=== PATIENT | female | born 1960 | race Caucasian/White ===

== ENCOUNTER 2019-12-28 08:37 | Outpatient (CLI) | payer BC, SELFPAY | END 2019-12-28 08:38 | disposition home or self-care (01) | LOC: CHSLAB 08:42 | PROVIDERS: PCP Internal Medicine; Visit Provider Specialist | DX: L01.00 Impetigo, unspecified (principal) | CPT/HCPCS: 87070; 87075; 87205 ==

== ENCOUNTER 2021-01-23 14:43 | Outpatient (CLI) | payer BC, SELFPAY ==
--- NOTE | ~2021-01-23 | CT_ITS ---
EXAMINATION: CT lung screening DATE: 01/23/2021 15:08 INDICATION: Personal history of tobacco dependence, current smoker with 40 to pack year history TECHNIQUE: Computed tomography (CT) of the chest was performed without intravenous contrast. The dose -length product (DLP) was 98.99 mGy-cm. Automated exposure control and iterative reconstruction techn Peerzue were employed. COMPARISON: 12/09/2018 FINDINGS: There is mild emphysema. There is a 5 mm groundglass nodule of the right upper lobe on imag e 26. Calcified pulmonary nodules and calcified mediastinal lymph nodes are consistent with old granu lomatous disease. The lungs are free of acute opacities. There is no pleural effusion or pneumothorax . No pathologically enlarged thoracic lymph nodes are identified. The heart size is normal. Calcified atherosclerosis is noted. Punctate calcifications in an otherwise normal spleen likely represent hea led granulomatous disease. There is a stable 2.5 cm low-density mass of the left adrenal gland, consi stent with an adenoma. IMPRESSION: 1. Lung-RADS category 2: Benign appearance or behavior. Continue annual screening with noncontrast lo w-dose chest CT in 12 months. Reviewed, dictated and finalized at location B. IMPRESSION: 1. Lung-RADS category 2: Benign appearance or behavior. Continue annual screeni ng with noncontrast low-dose chest CT in 12 months.
== END 2021-01-23 14:44 | disposition home or self-care (01) ==
LOC: CHSIMG 14:44
PROVIDERS: PCP Internal Medicine; Visit Provider Internal Medicine
DX: Z12.2 Encounter for screening for malignant neoplasm of respiratory organs (principal); Z87.891 Personal history of nicotine dependence
CPT/HCPCS: 71271

== ENCOUNTER 2021-01-29 12:14 | Outpatient (CLI) | payer BC, SELFPAY ==
--- NOTE | ~2021-01-29 | US_ITS ---
US soft tissue head and neck 01/29/2021 12:34 Indication: Lump under a year Procedure: High-resolution ultrasound of the left neck in the area of palpable concern Comparison: No prior studies for comparison. Findings: In the area of palpable concern there is an oval hypoechoic mass with internal vascularity, circumscribed margins, parallel orientation and no posterior features measuring 8 mm maximum dimensi on. There is a thin linear echogenic septum. There is a similar mass in the same area measuring 7 x 6 x 4 mm with similar characteristics. Impression: 1: 2 oval hypoechoic masses of the left neck in the area of palpable concern, likely reactive lymph n odes. Consider correlation with contrast-enhanced CT neck. Reviewed, dictated and finalized at location A. Impression: 1: 2 oval hypoechoic masses of the left neck in the area of palpable concern, l ikely reactive lymph nodes. Consider correlation with contrast-enhanced CT neck .
== END 2021-01-29 12:15 | disposition home or self-care (01) ==
LOC: CHSIMG 12:15
PROVIDERS: PCP Internal Medicine; Visit Provider Internal Medicine
DX: R59.1 Generalized enlarged lymph nodes (principal)
CPT/HCPCS: 76536

== ENCOUNTER 2021-02-01 07:26 | Outpatient (CLI) | payer BC, SELFPAY ==
--- NOTE | ~2021-02-01 | CT_ITS ---
EXAMINATION: CT soft tissue neck w con DATE: 02/01/2021 09:13 INDICATION: Left neck mass. TECHNIQUE: Computed tomography (CT) of the neck was performed with 75 mL Omnipaque-350 intravenous co ntrast. Automated exposure control and iterative reconstruction technique were employed. The dose-geovanny gth product was 549.76 mGy-cm. COMPARISON: None FINDINGS: There is mild emphysema. There is a skin marker in the left posterolateral neck. There are normal lymph nodes in this area. There is plaque in proximal left internal carotid artery with 0% geornimo nosis relative to normal distal artery lumen diameter. The paranasal sinuses are clear. The mastoid a ir cells are normal. There is moderate cervical spondylosis. IMPRESSION: 1. No abnormal neck mass or lymphadenopathy. Reviewed, dictated and finalized at location B.
== END 2021-02-01 07:27 | disposition home or self-care (01) ==
LOC: CHSIMG 07:28
PROVIDERS: PCP Internal Medicine; Visit Provider Internal Medicine
DX: R22.1 Localized swelling, mass and lump, neck (principal)
CPT/HCPCS: 70491; Q9967

== ENCOUNTER 2021-03-30 12:41 | Outpatient (CLI) | payer BC, SELFPAY ==
--- NOTE | ~2021-03-30 | XR_ITS ---
XR hip LT min 2V DATE: 03/30/2021 12:59 INDICATION: Back pain and left hip pain for one week. No injury. TECHNIQUE: AP and lateral views COMPARISON: None FINDINGS: There is degenerative spurring of the left femoral head with moderate left hip osteoarthrit is. Mild osteitis pubis. The sacroiliac joints are intact. No left hip fracture or dislocation, avascular necrosis or bone destruction is evident. Severe degenerative disc disease and included L5-S1. Bilateral pelvic surgical clips. IMPRESSION: Moderate left hip osteoarthritis Reviewed, dictated and finalized at location A.
--- NOTE | ~2021-03-30 | XR_ITS ---
XR lumbar spine 2-3V DATE: 03/30/2021 12:59 INDICATION: Back pain and left hip pain for one week. No known injury. TECHNIQUE: AP, lateral, coned lateral lumbosacral views COMPARISON: None FINDINGS: There is mild degenerative spurring of the lower thoracic spine. There is moderate degenerative disc disease at L1-2,, L3-4 and L4-5; moderately severe degenerative d isc disease at L2-3 and severe degenerative disease at L5-S1. No fracture, spondylolisthesis or bone destruction is evident. Included lower thoracic and lumbar ped icles are intact. The sacroiliac joints are intact. Surgical clips overlie pelvic area bilaterally. IMPRESSION: Multilevel degenerative disc disease, most pronounced at L2-3 and L5-S1 Reviewed, dictated and finalized at location A. IMPRESSION: Multilevel degenerative disc disease, most pronounced at L2-3 and L 5-S1
== END 2021-03-30 12:42 | disposition home or self-care (01) ==
LOC: CHSIMG 12:44
PROVIDERS: PCP Internal Medicine; Visit Provider Internal Medicine
DX: M54.9 Dorsalgia, unspecified (principal); M25.552 Pain in left hip
CPT/HCPCS: 72100; 73502

== ENCOUNTER 2021-04-06 12:46 | Outpatient (CLI) | payer BC, SELFPAY ==
--- NOTE | ~2021-04-06 | MM_ITS ---
EXAMINATION: MM screening dheeraj BI w oscar HISTORY: Screening mammogram TECHNIQUE: Craniocaudal and mediolateral oblique 3-D tomosynthesis images were obtained and synthetic 2-D images were generated. CAD analysis was submitted and interpreted. COMPARISON: 12/15/2018, 11/08/2015, 09/09/2014 bilateral digital screening mammogram examinations BREAST PARENCHYMAL COMPOSITION: The breasts are almost entirely fatty. FINDINGS: There is no evidence of suspicious mass, calcification, or architectural distortion to sugg est malignancy in either breast. There has been no suspicious interval change. IMPRESSION: 1. No mammographic evidence of malignancy. 2. Recommend routine screening mammography in one year. BI-RADS Category 1: Negative Reviewed, dictated and finalized at location A.
--- NOTE | ~2021-04-06 | DEXA_ITS ---
Bone Density Report Name: Kinza Larsen Age: 61 Sex: Female Ethnicity: White Date of : 1960 Indication: osteopenia; height loss; asthma or emphysema; Referring Provider: Mendez Vargas Study: Bone densitometry was performed. Exam Date: April 06, 2021 Accession number: [id number] Bone Density: Region BMD T-score Z-score Classification AP Spine(L2, L3, L4) 1.049 -0.3 1.3 Normal Femoral Neck (Left) 0.646 -1.8 -0.5 Osteopenia Total Hip (Left) 0.799 -1.2 -0.1 Osteopenia Femoral Neck (Right) 0.611 -2.1 -0.8 Osteopenia Total Hip (Right) 0.818 -1.0 0.0 Normal Femoral Neck Mean 0.629 -2.0 -0.6 Osteopenia Total Hip Mean 0.809 -1.1 0.0 Osteopenia World Health Organization criteria for BMD impression classify patients as: Normal (T-score at or above -1.0), Osteopenia (T-score between -1.0 and -2.5), or Osteoporosis (T-score at or below -2.5). 10-year Fracture Risk(1): Major Osteoporotic Fracture 11% Hip Fracture 2.6% Reported Risk Factors: [place] (), Neck BMD=0.611, BMI=28.3, smoking (1) FRAX(R) Version 3.08. Fracture probability calculated for an untreated patient. Fracture probability may be lower if the patient has received treatment. Previous Exams: Region Exam Age BMD T-score BMD Change BMD Change Date g/cm2 vs Baseline vs Previous AP Spine (L2-L4) 04/06/2021 61 1.049 -0.3 0.015 (1.4%)# -0.072 (-6.4%) 12/15/2018 58 1.120 0.4 0.086 (8.4%)*! 0.086 (8.4%)* 11/08/2015 55 1.034 -0.4 Total Hip(Left) 04/06/2021 61 0.799 -1.2 0.028 (3.6%)# 0.008 (1.0%)# 12/15/2018 58 0.791 -1.2 0.019 (2.5%) 0.019 (2.5%) 11/08/2015 55 0.772 -1.4 Total Hip(Right) 04/06/2021 61 0.818 -1.0 0.015 (1.9%)# 0.015 (1.9%)# 12/15/2018 58 0.802 -1.1 *Denotes significance at 95% confidence level, LSC for AP Spine = 0.022 g/cm2, LSC for Total Hip = 0.027 g/cm2 # Denotes dissimilar scan types or analysis methods Clinical Information Provided by Patient: Smokes Has used the following medications: Vitamin D Has the following medical conditions: Asthma or Emphysema Patient maximum height was 62 No regular weight bearing exercise Does not regularly consume dairy products Drinks caffeinated beverages Onset of menses at age 13 Number of children 2 Impression: The patient has low bone mass, based on the Right Femoral Neck T-score. The patient has risk factors, including: smoking. No sign
== END 2021-04-06 12:47 | disposition home or self-care (01) ==
LOC: CHSIMG 12:49
PROVIDERS: PCP Internal Medicine; Visit Provider Internal Medicine
DX: Z12.31 Encounter for screening mammogram for malignant neoplasm of breast (principal); M81.0 Age-related osteoporosis without current pathological fracture
CPT/HCPCS: 77063; 77067; 77080

== ENCOUNTER 2021-07-06 11:30 | Outpatient (CLI) | payer BC, SELFPAY ==
--- NOTE | ~2021-07-06 | XR_ITS ---
EXAMINATION:XR_CERV2-3V_CR DATE: 07/06/2021 11:52 INDICATION: Neck pain and stiffness with left-sided mass/lump TECHNIQUE: AP, lateral and odontoid views of the cervical spine are provided. COMPARISON: None FINDINGS: 1-2 mm retrolisthesis C2 on C3 and C5 on C6 with moderate disc height loss at both levels. Odontoid i s intact with moderate osteoarthritis at the atlantoaxial articulation. Vertebral body heights are no rmal. Multilevel moderate facet and mild to moderate uncovertebral osteoarthritis throughout the cerv ical spine. Prevertebral soft tissues are normal. IMPRESSION: 1. Moderate cervical spondylosis. Reviewed, dictated and finalized at location A.
== END 2021-07-06 11:31 | disposition home or self-care (01) ==
LOC: CHSLAB 11:32
PROVIDERS: PCP Internal Medicine; Visit Provider Internal Medicine
DX: M54.2 Cervicalgia (principal)
CPT/HCPCS: 72040

== ENCOUNTER 2021-10-27 10:00 | Emergency (ER) | payer BC, SELFPAY ==
--- NOTE | 2021-10-27 11:06 | ED.SKABFB ---
HPI - Skin/Abscess/Foreign Bdy General Chief complaint: Skin/Abscess/Foreign Body Stated complaint: rash on both arms neck and leg covid positive Time Seen by Provider: 10/27/21 11:06 Source: patient Mode of arrival: ambulatory Limitations: no limitations History of Present Illness HPI narrative: 51-year-old woman with a history of psoriasis, hypertension and dyslipidemia comes in today complaining of an itchy rash on her arms and legs there has been present for 3 weeks. She states that the rash itching seems to be getting worse but her psoriasis is not gotten worse. She recently was diagnosed with COVID. She denies any new medications. She stopped using soaps and detergents. Her doctor prescribed topical triamcinolone but that seems to make the rash burn. She denies fever, shortness of breath, vomiting, feeling weak, and chest pain. MD complaint: rash Onset (ago): week(s) (3) Location: LUE, RUE, LLE and RLE Severity: moderate Quality: pruritic Pain Consistency: constant Relieving factors: none Exacerbating factors: medication Context: none Associated symptoms: cough Treatments prior to arrival: corticosteroid Related Data Home Medications Medication Instructions Recorded Confirmed atorvastatin 20 mg tablet 20 mg PO DAILY 06/27/21 06/27/21 fexofenadine 180 mg tablet 180 mg PO DAILY 06/27/21 06/27/21 hydrochlorothiazide 25 mg tablet 25 mg PO DAILY 06/27/21 06/27/21 lisinopril 40 mg tablet 40 mg PO DAILY 06/27/21 06/27/21 omeprazole 40 mg capsule,delayed 40 mg PO DAILY 06/27/21 06/27/21 release Allergies Allergy/AdvReac Type Severity Reaction Status Date / Time No Known Allergies Allergy Unverified 06/27/21 09:28 Review of Systems Review of Systems: All systems reviewed & are unremarkable except as noted in HPI and below Constitutional: Constitutional: Denies chills and Denies fever(s) ENT: Reports nasal congestion and Denies sore throat Cardiovascular: Cardiovascular: Denies chest pain and Denies radiating jaw, neck or arm pain Respiratory: Respiratory: Reports chest congestion, Reports cough, Denies dyspnea and Denies wheezing Gastrointestinal: Gastrointestinal: Denies abdominal pain, Denies diarrhea, Denies nausea and Denies vomiting Musculoskeletal: Musculoskeletal: Denies arthralgias and Denies joint swelling Neurologic: Denies dizziness, Denies syncope, Denies headache(s) and Denies focal weakness Allergic/Immunologic: Allergic/Immunologic: Denies lip swelling, Denies throat swelling and Denies tongue swelling PMF Past Medical History Medical History Allergies GERD (gastroesophageal reflux disease) Family History Family History (Updated 06/27/21 @ 09:32 by Aida Horton MA) Father Alcoholism Mother Hypertension Son Heart disease Grandparent Lung cancer Social History Social History Smoking packs per day: 1 Smoking cigarettes per day: 20.0 Smoking status: Current every day smoker Alcohol intake: current Substance use: never Exam Const: General: healthy appearing, no acute distress and alert Orientation/consciousness: patient oriented x3 Limitations: no limitations HENMT: Head: normal to inspection Ears: external ears normal, TM's normal bilaterally and EAC's normal General nose exam: Normal nares present Face and sinus: normal facial exam Mouth: Yes moist mucous membranes Throat: posterior oropharynx normal Eyes: Conjunctivae: conjunctivae normal Pupils: Equal, round and reactive pupils present EOM: EOMs intact bilaterally Resp: Effort & Inspection: normal respiratory effort and not labored Auscultation: clear to auscultation bilaterally, no rales, no rhonchi and no wheezes Cardio: Rate: regular rate Rhythm: regular rhythm Heart sounds: no murmurs Skin: General skin exam: normal color, no jaundice and no pallor Other: Mild erythema with s
[2021-10-27 11:07] VITALS: BP 175/102; PULSE 91; RESP 20; TEMP 36.3; O2SAT 96
--- NOTE | 2021-10-27 11:28 | PC.NURSE ---
Floor notified pt was being admitted and covid +. Sita states she will have to move some things around on the floor and get back to television writer with bed assignment.
== END 2021-10-27 12:18 | disposition home or self-care (01) ==
PROVIDERS: Emergency Provider Emergency Medicine; PCP Internal Medicine
DX: R21 Rash and other nonspecific skin eruption (principal)
CPT/HCPCS: 99283

== ENCOUNTER 2021-11-01 10:30 | Outpatient (CLI) | payer BC, SELFPAY ==
--- NOTE | 2021-11-01 10:40 | PC.NURSE ---
Pt to room 227 amb. A&Ox3. Infusion plan of care explained. Pt read and signed the consent form. Pt has no questions or complaints. Oriented to room. Call alfonso in reach. Reminded to call with needs.
[2021-11-01] MEDS: ACETAMINOPHEN 325 MG TABLET 650 MG PO (11:04)
[2021-11-01] MEDS: diphenhydrAMINE HCl CAP 25 MG CAPSULE PO (11:05)
[2021-11-01] MEDS: FAMOTIDINE 20 MG TABLET PO (11:05)
--- NOTE | 2021-11-01 12:10 | PC.NURSE ---
PT has no complaints. Discharged to home amb.
== END 2021-11-01 10:31 | disposition home or self-care (01) ==
PROVIDERS: PCP Internal Medicine; Visit Provider Internal Medicine
DX: U07.1 COVID-19 (principal)
CPT/HCPCS: A9270; M0245; Q0247

== ENCOUNTER 2022-05-20 10:07 | Outpatient (CLI) | payer BC, SELFPAY ==
--- NOTE | ~2022-05-20 | CT_ITS ---
EXAMINATION:CT lung screening DATE: 05/20/2022 10:20 INDICATION: Personal history of nicotine dependence. Current smoker with 43 pack year history. TECHNIQUE: Computed tomography (CT) of the chest was performed without intravenous contrast. Automate d exposure control and iterative reconstruction technique were employed. The dose-length product (DLP ) was 82.09 mGy-cm. COMPARISON: Chest CT 01/23/2021 FINDINGS: There is mild emphysema. Calcified left lung nodules and calcified left hilar and mediastin al lymph nodes are consistent with old granulomatous disease. There is a new 4 mm thin-walled cavitar y nodule in left upper lobe. No pleural effusion. The heart size is normal. There are coronary artery calcifications. No pericardial effusion. Calcifications in the spleen are consistent with old granul omatous disease. There is a chronic 3.0 cm mass in left adrenal gland measuring low-attenuation, cons istent with an adenoma. There is moderate thoracic spondylosis. IMPRESSION: 1. Lung-RADS category 3: Probably benign. Further evaluation is recommended with noncontrast low-dose chest CT in 6 months. Reviewed, dictated and finalized at location A. IMPRESSION: 1. Lung-RADS category 3: Probably benign. Further evaluation is recommended wit h noncontrast low-dose chest CT in 6 months.
== END 2022-05-20 10:08 | disposition home or self-care (01) ==
LOC: CHSIMG 10:08
PROVIDERS: PCP Internal Medicine; Visit Provider Internal Medicine
DX: Z12.2 Encounter for screening for malignant neoplasm of respiratory organs (principal); Z87.891 Personal history of nicotine dependence
CPT/HCPCS: 71271

== ENCOUNTER 2022-06-14 08:48 | Outpatient (CLI) | payer BC, SELFPAY ==
--- NOTE | 2022-06-14 | EST_ITS ---
Patient Info Name: Kinza Larsen Age: 62 years : 1960 Gender: Female Ht: 62 in Wt: 150 lbs BSA: 1.74 m2 Exam Date: 06/14/2022 10:11 AM Exam Location: [facility] Stress Patient Status: Outpatient Admit Date: 06/14/2022 Staff Ordering Physician: Mendez Vargas MD Attending Provider: Mendez Vargas MD Exercise Technologist: Leonor Malik CT Exercise Physician: Marcus Dumont DO Exam Type: CA stress barbara w NM Study Info Indications I25.84 - EXERCISE INTOLERANCE CORONARY CALCIFICATION A regadenoson stress test was performed. Summary 1. 1. Negative lexiscan stress test for ischemic ST changes by ECG criteria. 2. 2. Baseline hypertension. 3. 3. Nuclear scan to follow and will be reported separately. Please correlate with it. 4. 4. Patient informed of the above results. Protocol: Lexiscan Stress ECG Details Stage: REST Duration (min): 1 min : 5 sec HR (bpm): 59 SBP (mmHg): 150 DBP (mmHg): 79 Stage: REST Duration (min): 5 min : 7 sec HR (bpm): 61 SBP (mmHg): 150 DBP (mmHg): 79 Stage: STAGE 1 Duration (min): 1 min : 0 sec HR (bpm): 70 SBP (mmHg): 154 DBP (mmHg): 85 Stage: RECOVERY Duration (min): 1 min : 0 sec HR (bpm): 102 SBP (mmHg): 154 DBP (mmHg): 85 Stage: RECOVERY Duration (min): 2 min : 0 sec HR (bpm): 99 SBP (mmHg): 154 DBP (mmHg): 85 Stage: RECOVERY Duration (min): 3 min : 0 sec HR (bpm): 90 SBP (mmHg): 157 DBP (mmHg): 80 Stage: RECOVERY Duration (min): 3 min : 4 sec HR (bpm): 91 SBP (mmHg): 157 DBP (mmHg): 80 Rest HR: 61 bpm Peak HR: 104 bpm Rest Sys BP: 150 mmHg Peak Sys BP: 157 mmHg Max Pred HR: 157 bpm % Max Pred HR: 66 % Target HR: 133 bpm Max RPP: 16,328 bpm*mmHg Termination Reason: Completed protocol Cardiac Symptoms: Shortness of breath Total Time: 1 min : 0 sec Rest Larios BP: 79 mmHg Peak Larios BP: 80 mmHg Total Dose: 0.4 mg Resting ECG Sinus rhythm. Stress ECG No ST changes. Arrhythmias None. Report Signatures
--- NOTE | ~2022-06-14 | NM_ITS ---
EXAMINATION: NM barbara stress w perfusion DATE: 06/14/2022 11:08 INDICATION: Coronary artery calcifications. Exercise intolerance. TECHNIQUE: Rest images were obtained following intravenous administration of 10.1 mCi Tc99m tetrofosm in (Myoview). The patient was infused intravenously with Lexiscan (Regadenoson). Then, 32.5 mCi Tc99m tetrofosmin (Myoview) was administered intravenously, and stress images were obtained. Data was nigel nstructed into short axis and horizontal and vertical long axis SPECT images. Gated SPECT images were also obtained. COMPARISON: None. FINDINGS: There is no definite reversible or fixed perfusion abnormality to suggest ischemia or infar ction. There is normal left ventricular chamber size, wall motion and ejection fraction. Left ventr icular ejection fraction measures >70%. IMPRESSION: 1. Normal myocardial perfusion at rest and during stress. 2. Left ventricular ejection fraction measuring >70%. Reviewed, dictated and finalized at location A.
== END 2022-06-14 08:49 | disposition home or self-care (01) ==
PROVIDERS: PCP Internal Medicine; Visit Provider Internal Medicine
DX: I25.10 Atherosclerotic heart disease of native coronary artery without angina pectoris (principal)
CPT/HCPCS: 78452; 93017; A9502

== ENCOUNTER 2022-08-16 12:39 | Outpatient (CLI) | payer BC, SELFPAY ==
[2022-08-16 13:25] VITALS: PULSE 74; O2SAT 94
[2022-08-16 13:32] VITALS: PULSE 88; O2SAT 93
--- NOTE | 2022-08-16 13:39 | HOMEO2EVAL ---
Evaluation was performed at [facility] Home Oxygen Evaluation RC: Home Oxygen (O2) Evaluation Start: 08/16/22 13:33 Freq: Status: Active Protocol: RPE Activity Type Activity Date Activity User E-sign Co-sign Detail Recorded Client Recorded Date Recorded By Document 08/16/22 13:25 [email or web address] 08/16/22 13:37 SJB Document 08/16/22 13:32 SJB [email or web address] 08/16/22 13:37 SJB 08/16/22 08/16/22 13:25 13:32 Home O2 Evaluation [Oxygen] -Test Phase Resting Exercise -Oxygen Delivery Room Air Room Air [Pulse Oximetry] -Pulse Oximetry (90-100 %) 94 93 [Pulse Rate] -Pulse Rate (60-100 beats/min) 74 88 [Evaluation] -Activity Tolerance Good -Rating of Perceived Dyspnea (PD) +1 Mild, Noticeable to the Participant but Not to an Observer -Rate of Perceived Exertion (PE) 11 Fairly light Query Text:Click the Protocol Button to View the RPE Scale [Exercise] -Ambulation Distance (feet) 1,100 -Ambulation Distance (meters) 335.26 [Comments] -Home Oxygen Evaluation Comments Will begin walk Pt walked on room air. approx 1100 ft on room air. Sp02 stayed between 92-94%, HR up to 88. Sarah very well, talking throughout. Educated on PLB . [Charges] -Treatment Charges O2 Evaluation - Outpatient
--- NOTE | 2022-08-23 17:17 | PFT_ITS ---
This report was recreated on September 02, 2022. Original report was signed by Dr. dEie Cook on August 23, 2022 at 1721. PFT Procedure Performed PFT Procedure Performed Spirometry with Pre/Post Bronchodilator Plethysmography (Lung Vol) Diffusing Cap (DLCO) Flow Vol Loop PFT Interpretation DOS:08/16/2022 REQUESTING: Tomy Escamilla APRN REASON FOR TESTING: COPD PULMONARY FUNCTION TESTS Results are reliable and reproducible. Spirometry: Pre bronchodilator FVC FEV1 is was 1.09 L, 50% predicted, moderately reduced. Pre bronchodilator FVC is 2.58 L, 97% predicted, normal. FEV1 all; FVC 42% severely reduced. After bronchodilator administration there is a 22% increase in FEV1, 1.32 L, greater than 200 mL. This is statistically significant. There was a 14% increase in the FVC, 110% predicted, also significant. Lung volumes: Total lung capacity he 4.68 L, 105% predicted, normal. Residual volume 2.10 L, 123%, mild air trapping. RV/TLC is 45%, increased, consistent with air trapping. Airway resistance is increased, 350%. Diffusion: DLCO is 11.4, 59%, mildly decreased. DLCO/VA is 2.68, 77% Flow volume loop: There is extreme coving of the expiratory limb consistent with airflow obstruction. IMPRESSION: This study shows a severe obstructive ventilatory impairment with good response to bronchodilator, mild air trapping and moderate diffusion impairment. There is no prior study in our system for comparison. Edie Cook MD This dictation may have been done utilizing a voice recognition system. Attempts have been made to correct errors. However, there may be uncorrected grammatical, spelling, and recognition errors present. Report Initialized date/time: Edie Cook MD 08/23/22 / 1717 Electronically signed by: Edie Cook MD 08/23/22 1721 [facility]
== END 2022-08-16 12:40 | disposition home or self-care (01) ==
LOC: CHSCARD 12:40
PROVIDERS: PCP Internal Medicine; Visit Provider Nurse Practitioner Family
DX: J44.9 Chronic obstructive pulmonary disease, unspecified (principal)
CPT/HCPCS: 94060; 94618; 94726; 94729

== ENCOUNTER 2022-08-23 12:24 | Outpatient (CLI) | payer BC, SELFPAY ==
--- NOTE | ~2022-08-23 | MM_ITS ---
EXAMINATION: MM screening dheeraj BI w oscar HISTORY: Screening mammogram TECHNIQUE: Craniocaudal and mediolateral oblique 3-D tomosynthesis images were obtained and synthetic 2-D images were generated. CAD analysis was submitted and interpreted. COMPARISON: 04/06/2021, 12/15/2018, 11/08/2015 bilateral screening mammogram examinations BREAST PARENCHYMAL COMPOSITION: The breasts are almost entirely fatty. FINDINGS: There is no evidence of suspicious mass, calcification, or architectural distortion to sugg est malignancy in either breast. There has been no suspicious interval change. IMPRESSION: 1. No mammographic evidence of malignancy. 2. Recommend routine screening mammography in one year. BI-RADS Category 1: Negative Reviewed, dictated and finalized at location A. [employer] MA[employer]GER
--- NOTE | 2022-08-23 17:13 | WPDPFTINT ---
PFT Procedure Performed PFT Procedure Performed Spirometry with Pre/Post Bronchodilator Plethysmography (Lung Vol) Diffusing Cap (DLCO) Flow Vol Loop PFT Interpretation DOS:08/16/2022 REQUESTING: Tomy Escamilla APRN REASON FOR TESTING: COPD PULMONARY FUNCTION TESTS Results are reliable and reproducible. Spirometry: Pre bronchodilator FVC FEV1 is was 1.09 L, 50% predicted, moderately reduced. Pre bronchodilator FVC is 2.58 L, 97% predicted, normal. FEV1 all; FVC 42% severely reduced. After bronchodilator administration there is a 22% increase in FEV1, 1.32 L, greater than 200 mL. This is statistically significant. There was a 14% increase in the FVC, 110% predicted, also significant. Lung volumes: Total lung capacity he 4.68 L, 105% predicted, normal. Residual volume 2.10 L, 123%, mild air trapping. RV/TLC is 45%, increased, consistent with air trapping. Airway resistance is increased, 350%. Diffusion: DLCO is 11.4, 59%, mildly decreased. DLCO/VA is 2.68, 77% Flow volume loop: There is extreme coving of the expiratory limb consistent with airflow obstruction. IMPRESSION: This study shows a severe obstructive ventilatory impairment with good response to bronchodilator, mild air trapping and moderate diffusion impairment. There is no prior study in our system for comparison. Edie Cook MD
== END 2022-08-23 12:25 | disposition home or self-care (01) ==
LOC: CHSIMG 12:25
PROVIDERS: PCP Internal Medicine; Visit Provider Internal Medicine
DX: Z12.31 Encounter for screening mammogram for malignant neoplasm of breast (principal)
CPT/HCPCS: 77063; 77067

== ENCOUNTER 2022-10-29 14:02 | Outpatient (CLI) | payer BC, SELFPAY ==
--- NOTE | ~2022-10-29 | CT_ITS ---
EXAMINATION:CT diagnostic chest wo con DATE: 10/29/2022 14:48 INDICATION: Lung nodule. TECHNIQUE: Computed tomography (CT) of the chest was performed without intravenous contrast. Automate d exposure control and iterative reconstruction technique were employed. The dose-length product (DLP ) was 188.32 mGy-cm. COMPARISON: Chest CT 05/20/2022 FINDINGS: There is mild emphysema. There is mild scarring in paraspinal right lower lobe. There is mi ld atelectasis and scarring in lingula. There is mild bronchiectasis in lingula. There is mild atelec tasis in right lower lobe. Calcified bilateral lung nodules and calcified left hilar and mediastinal lymph nodes are consistent with old granulomatous disease. No pleural effusion. Moderate size is norm al. There are coronary artery calcifications. No pericardial effusion. There is a 3.1 cm mass in left adrenal gland measuring low-attenuation, consistent with an adenoma. Calcifications in the spleen ar e consistent with old granulomatous disease. There is severe cervical spondylosis and moderate thorac ic spondylosis. IMPRESSION: 1. Lung-RADS category 2: Benign appearance or behavior. Continue annual screening with noncontrast lo w-dose chest CT in 12 months. Reviewed, dictated and finalized at location A. RTISING MANAGER IMPRESSION: 1. Lung-RADS category 2: Benign appearance or behavior. Continue annual screeni ng with noncontrast low-dose chest CT in 12 months.
== END 2022-10-29 14:03 | disposition home or self-care (01) ==
LOC: CHSIMG 14:03
PROVIDERS: PCP Internal Medicine; Visit Provider Nurse Practitioner Family
DX: R91.1 Solitary pulmonary nodule (principal)
CPT/HCPCS: 71250

== ENCOUNTER 2023-01-24 14:14 | Outpatient (CLI) | payer BC, SELFPAY ==
--- NOTE | ~2023-01-24 | XR_ITS ---
XR knee LT 3V 01/24/2023 14:33 INDICATION: Left knee pain PROCEDURE: 3 views left knee COMPARISON: No prior studies for comparison. FINDINGS: Fracture, dislocation or subluxation is not identified. No significant joint effusion. The soft tissues appear within normal limits. No foreign bodies are identified. IMPRESSION: 1: NO ACUTE BONE OR JOINT ABNORMALITY IDENTIFIED. Reviewed, dictated and finalized at location B.
== END 2023-01-24 14:15 | disposition home or self-care (01) ==
LOC: CHSIMG 14:16
PROVIDERS: PCP Internal Medicine; Visit Provider Internal Medicine
DX: E78.5 Hyperlipidemia, unspecified (principal); I10 Essential (primary) hypertension; G89.29 Other chronic pain
CPT/HCPCS: 73562

== ENCOUNTER 2023-01-29 14:47 | Outpatient (CLI) | payer BC, SELFPAY ==
--- NOTE | ~2023-01-29 | XR_ITS ---
XR hip LT min 2V DATE: 01/29/2023 15:15 INDICATION: Low back pain which radiates to the left hip and leg TECHNIQUE: AP and lateral views of left hip COMPARISON: None FINDINGS: There is mild to moderate spurring of the left femoral head consistent with osteoarthritis. No fracture or dislocation, avascular necrosis or bone destruction of the left hip is detected. Normal alignment at the pubic symphysis and left sacral iliac joint. Surgical clips overlie the pelvis. IMPRESSION: Mild to moderate left hip osteoarthritis Reviewed, dictated and finalized at location B.
--- NOTE | ~2023-01-29 | XR_ITS ---
XR lumbar spine 2-3V DATE: 01/29/2023 15:16 INDICATION: Low back pain for 3 weeks, radiating to left hip and leg TECHNIQUE: AP, lateral, coned lateral lumbosacral views COMPARISON: None FINDINGS: There is mild rotatory levoscoliosis of the lumbar spine. There is multilevel degenerative disc disease, severe at L2-3, mildly severe L4-5 and severe L5-S1. No fracture or bone destruction or spondylolisthesis is evident. The lumbar pedicles are intact. The sacral iliac joints are intact. IMPRESSION: Multilevel degenerative disc disease, particular severe at L2-3 and L5-S1 Osteopenia Mild rotatory levoscoliosis Reviewed, dictated and finalized at location B.
== END 2023-01-29 14:48 | disposition home or self-care (01) ==
PROVIDERS: PCP Internal Medicine; Visit Provider Internal Medicine
DX: M54.50 Low back pain, unspecified (principal); M25.552 Pain in left hip; M16.12 Unilateral primary osteoarthritis, left hip; M51.36 Other intervertebral disc degeneration, lumbar region; M85.88 Other specified disorders of bone density and structure, other site; M41.86 Other forms of scoliosis, lumbar region
CPT/HCPCS: 72100; 73502

== ENCOUNTER 2023-01-31 08:22 | Outpatient (CLI) | payer BC, SELFPAY ==
--- NOTE | ~2023-01-31 | US_ITS ---
US right upper quadrant INDICATION: Abnormal liver function tests. PROCEDURE: Realtime right upper abdominal ultrasound. COMPARISON: No prior studies for comparison. FINDINGS: The pancreas is normal without focal mass or pancreatic ductal dilation. Diffusely increas ed liver echotexture, consistent with fatty infiltration. There is normal directional flow in the po rtal vein. There are multiple hyperechoic foci in the gallbladder lumen without posterior shadowing which may re present gallbladder polyps or sludge. Common bile duct measures 5 mm. No sonographic Casas's sign. IMPRESSION: 1: Multiple hyperechoic foci in the gallbladder lumen without posterior shadowing which may represent gallbladder polyps or sludge. 2: Hepatic steatosis. Reviewed, dictated and finalized at location A. IMPRESSION: 1: Multiple hyperechoic foci in the gallbladder lumen without posterior shadowi ng which may represent gallbladder polyps or sludge. 2: Hepatic steatosis.
== END 2023-01-31 08:23 | disposition home or self-care (01) ==
LOC: CHSIMG 08:23
PROVIDERS: PCP Internal Medicine; Visit Provider Internal Medicine
DX: R94.5 Abnormal results of liver function studies (principal); K76.0 Fatty (change of) liver, not elsewhere classified
CPT/HCPCS: 76705

== ENCOUNTER 2023-05-30 12:12 | Outpatient (CLI) | payer BC, SELFPAY ==
--- NOTE | ~2023-05-30 | XR_ITS ---
EXAMINATION: XR chest 2V Exam Date/Time: 05/30/2023 12:38 CDT HISTORY: possible Bronchitis, sob, cough, congestion, fever hx COPD Comparison: 11/01/2015. RESULT: Lines, tubes, and devices: None. Lungs and pleura: Calcified pulmonary granulomas. Otherwise clear Cardiomediastinal silhouette: Stable. Calcified hilar nodes. Other: No acute osseous or upper abdominal finding. IMPRESSION: No acute cardiopulmonary process. Reviewed, dictated and finalized at location K.
[2023-05-30 12:29] LABS: Basophils Absolute Auto 0.07 K/mm3 (0.00-0.10); Basophils Percent Auto 0.4 % (0.0-1.0); Eosinophils Absolute Auto 0.01 K/mm3 (0.02-0.50); Eosinophils Percent Auto 0.1 % (1.0-6.0); Hematocrit 42.8 % (35.0-49.0); Hemoglobin 14.6 g/dL (12.0-15.0); Immature Granulocyte Absolute 0.08 K/mm3 (0.00-0.00); Immature Granulocyte Percent A 0.4 % (0.0-0.0); Lymphocytes Absolute Auto 1.34 K/mm3 (1.10-4.50); Lymphocytes Percent Auto 7.1 % (18.0-42.0); Mean Corpuscular HGB Conc 34.1 g/dL (32.0-36.0); Mean Corpuscular Hemoglobin 34.6 pg (27.0-31.0); Mean Corpuscular Volume 101.4 fL (78.0-102.0); Mean Platelet Volume 9.6 fl (9.2-11.8); Monocytes Absolute Auto 1.61 K/mm3 (0.10-0.90); Monocytes Percent Auto 8.5 % (2.0-11.0); Neutrophils Absolute Auto 15.7 K/mm3 (1.7-7.2); Neutrophils Percent Auto 83.5 % (50.0-70.0); Platelet Count Result 339 K/mm3 (150-420); Red Blood Count 4.22 M/mm3 (4.20-5.40); Red Cell Distribution Width 13.6 % (11.6-14.4); White Blood Count 18.8 K/mm3 (4.8-10.8)
[2023-05-30 12:46] LABS: Alanine Aminotransferase 34 U/L (14-59); Alkaline Phosphatase 91 U/L (46-116); Anion Gap 11 mmol/L (8-16); Aspartate Amino Transferase 20 U/L (15-37); Bilirubin,Total 0.6 mg/dL (0.00-1.00); Blood Urea Nitrogen 10 mg/dL (7-18); Calcium 9.5 mg/dL (8.5-10.1); Carbon Dioxide 30 mmol/L (21-32); Chloride 99 mmol/L (98-108); Estimated Glomerular Filt Rate > 60; Glucose 128 mg/dL (70-99); Osmolality Calculated 291 mOsm/kg (285-295); Potassium 3.7 mmol/L (3.5-5.1); Sodium 140 mmol/L (136-145); Total Protein 7.4 g/dL (6.4-8.2)
== END 2023-05-30 12:13 | disposition home or self-care (01) ==
LOC: CHSLAB 12:15
PROVIDERS: PCP Internal Medicine; Visit Provider Nurse Practitioner Family
DX: J06.9 Acute upper respiratory infection, unspecified (principal); J40 Bronchitis, not specified as acute or chronic
CPT/HCPCS: 36415; 71046; 80053; 85025

== ENCOUNTER 2023-07-28 09:55 | Outpatient (CLI) | payer BC, SELFPAY ==
[2023-07-28 11:00] VITALS: PULSE 90; O2SAT 98
[2023-07-28 11:06] VITALS: PULSE 113; PULSE 116; O2SAT 91
--- NOTE | 2023-08-07 13:32 | P.PCNPFT_ITS ---
PFT Procedure Performed PFT Procedure Performed Spirometry with Pre/Post Bronchodilator Plethysmography (Lung Vol) Diffusing Cap (DLCO) Flow Vol Loop PFT Interpretation DOS: 07/28/2023 REQUESTING: Tomy Escamilla APRN REASON FOR TESTING: Increased shortness of breath; COPD, hx of histoplasmosis PULMONARY FUNCTION TESTS Spirometry: Pre-bronchodilator FEV1 is 1.14 L, 53% predicted, moderately decreased. Pre-bronchodilator FVC is 2.49 L, 94% predicted, normal. FEV1 / FVC ratio is 46% predicted, decreased, consistent with airflow obstruction. After bronchodilator, the FEV1 increases by 6%, 1.21 L, 57% predicted, insignificant response to bronchodilator. The FVC decreases by 1%. The FEV1/FV C ratio remains low, 49%. Lung volumes: The total lung capacity is 5.41 L, 121% predicted, consistent with hyperinflation. The residual volume is 2.8 3 L, 165% predicted, consistent with severe air trapping. RV/TLC is increased, 52% consistent with air trapping. Airway resistance 7.81, 492%, increased. Diffusion: DLCO is 8.7, 45% predicted, moderately decreased. DLCO/VA is 2.59, 69% predicted, mildly decreased. Flow volume loop: Flow volume loop shows coving of the expiratory limb consistent with airflow obstruction. IMPRESSION: This study shows a moderate obstructive ventilatory impairment without response to bronchodilator, mild hyperinflation which is new, severe air trapping, and a moderate diffusion impairment which partially corrects for alveolar volume. Lack of response to bronchodilator should not preclude use if clinically indicated. Compared to a prior study on 08/16/2022, spirometry is similar however she had a significant response to bronchodilator. Hyperinflation is new, air trapping is worse. Diffusion impairment is worse. The FEV1 was 1.09 L, 50% predicted, FVC was 2.58 L, 97% predicted. The FEV1 post bronchodilator was 1.32 L, 61% predicted, a 22% increase. The FVC post bronchodilator was 2.93 L, 110% predicted, a 14% increase. The FEV1/ FVC ratio remained low, 45%. The total lung capacity was 105%, in the normal range, lower compared to the current total lung capacity. Residual volume 2.10 L, 123%, mildly increased. DLCO was 11.4, 59% predicted, DLCO/VA was 2.68, 72% predicted. Edie Cook MD
--- NOTE | 2023-08-14 11:31 | SIXMINWLK ---
Six Minute Walk Test PFT: Six Minute Walk Start: 07/28/23 11:30 Freq: Status: Discharge Protocol: RPE Activity Type Activity Date Activity User E-sign Co-sign Detail Recorded Client Recorded Date Recorded By Document 07/28/23 11:00 [facility] [id number] 07/28/23 13:24 [facility] Document 07/28/23 11:06 [facility] [id number] 07/28/23 13:24 [facility] 07/28/23 07/28/23 11:00 11:06 Six Minute Walk Gender F F Age [age] Race White White Six Minute Walk Post Test -Pulse Rate (60-100 beats/min) 113 H Six Minute Walk Baseline -Pulse Rate (60-100 beats/min) 90 116 H -Pulse Oximetry (90-100 %) 98 91 Number of Complete Laps ( 1 Lap = 100 1,200 1,200 Feet, Enter Total Feet) Number of Partial Laps (In Feet) 50 50 Total Distance Walked (Feet) 1250 1250 Six Minute Walk Comments Patient walked 1250feet on room air with no walking aids used. @ 3 minutes HR 111 Spo2 90% @ 4 minutes HR 113 Spo2 91%
--- NOTE | 2023-08-15 12:14 | WPDSIXMINUTE ---
Six Minute Walk Procedure Procedure Performed Pulmonary Stress Test (6 min walk) Six Minute Walk Six Minute Walk: DATE OF SERVICE: 07/28/2023 REQUESTING: Tomy Escamilla APRN REASON FOR TESTING: Increased shortness of breath, COPD, history of histoplasmosis SIX MINUTE WALK This test was conducted per ATS guidelines. The initial saturation was 98% and initial heart rate was 90 beats per minute. During the walk, at 3 minutes, pulse was 111 and the saturation was 90%. At 4 minutes, the pulse was 113 beats per minute and the saturation was 91%. The patient walked without stopping, completing 1250 feet/381 meters. The saturation at the end of testing was 91%, and the heart rate was 116. IMPRESSION: Desaturation without kenisha hypoxemia. The patient dropped from 98% to 90% while walking. Patient did not meet threshold for supplemental oxygen however dropping more than 5% with exercise is abnormal. Clinical correlation is recommended. Distance walked is adequate for her age. Edie Cook MD
== END 2023-07-28 09:56 | disposition home or self-care (01) ==
LOC: CHSCARD 09:56
PROVIDERS: PCP Internal Medicine; Visit Provider Nurse Practitioner Family
DX: J44.9 Chronic obstructive pulmonary disease, unspecified (principal); R06.09 Other forms of dyspnea
CPT/HCPCS: 94060; 94618; 94726; 94729

== ENCOUNTER 2023-08-25 12:35 | Outpatient (CLI) | payer BC, SELFPAY ==
--- NOTE | ~2023-08-25 | MM_ITS ---
EXAMINATION: MM screening [facility] BI w oscar HISTORY: Screening mammogram TECHNIQUE: Craniocaudal and mediolateral oblique 3-D tomosynthesis images were obtained and synthetic 2-D images were generated. CAD analysis was submitted and interpreted. COMPARISON: 08/23/2022, 04/06/2021, 12/15/2018 BREAST PARENCHYMAL COMPOSITION: The breasts are almost entirely fatty. FINDINGS: No suspicious mass, calcification, or architectural distortion are identified in either little ast to suggest malignancy. There has been no suspicious interval change. IMPRESSION: 1. No mammographic evidence of malignancy. 2. Recommend routine screening mammography in one year. BI-RADS Category 1: Negative Reviewed, dictated and finalized at location A. RICULTURIST
== END 2023-08-25 12:36 | disposition home or self-care (01) ==
LOC: CHSIMG 12:37
PROVIDERS: PCP Internal Medicine; Visit Provider Internal Medicine
DX: Z12.31 Encounter for screening mammogram for malignant neoplasm of breast (principal)
CPT/HCPCS: 77063; 77067

== ENCOUNTER 2023-11-05 14:44 | Outpatient (CLI) | payer BC, SELFPAY ==
--- NOTE | ~2023-11-05 | CT_ITS ---
EXAMINATION:CT lung screening DATE: 11/05/2023 15:23 INDICATION: Tobacco use. TECHNIQUE: Computed tomography (CT) of the chest was performed without intravenous contrast. Automate d exposure control and iterative reconstruction technique were employed. The dose-length product (DLP ) was 90.89 mGy-cm. COMPARISON: Chest CT 10/29/22 FINDINGS: There is mild emphysema. There is a 3 mm nodule in right upper lobe. There is mild scarring in paraspinal right lower lobe. There is mild atelectasis bilaterally. Calcified left lung nodules a nd calcified mediastinal lymph nodes are consistent with old granulomatous disease. No pleural effusi on. The heart size is normal. There are coronary artery calcifications. No pericardial effusion. Aort ic atherosclerosis is noted. There is a 3.0 cm mass in left adrenal gland measuring low attenuation, consistent with an adenoma. There is severe thoracic spondylosis. IMPRESSION: 1. Lung-RADS category 2: Benign appearance or behavior. Continue annual screening with noncontrast lo w-dose chest CT in 12 months. Reviewed, dictated and finalized at location E. MATOR PRINTING PLATE MAKING IMPRESSION: 1. Lung-RADS category 2: Benign appearance or behavior. Continue annual screeni ng with noncontrast low-dose chest CT in 12 months.
== END 2023-11-05 14:45 | disposition home or self-care (01) ==
LOC: CHSIMG 14:46
PROVIDERS: PCP Internal Medicine; Visit Provider Nurse Practitioner Family
DX: Z12.2 Encounter for screening for malignant neoplasm of respiratory organs (principal); Z87.891 Personal history of nicotine dependence
CPT/HCPCS: 71271

== ENCOUNTER 2024-03-03 11:15 | Outpatient (CLI) | payer OTHER, BC, SELFPAY ==
--- NOTE | ~2024-03-03 | XR_ITS ---
XR chest 2V DATE: 03/03/2024 11:43 INDICATION: Difficulty breathing for 2 days after breathing in cement dust TECHNIQUE: PA and lateral views COMPARISON: 05/30/2023 2 view chest FINDINGS: Calcified left lower lobe pulmonary granulomas. Moderate hyperinflation. No pulmonary infiltrate or consolidation, pleural effusion or pulmonary vasc ular congestion or pneumothorax is detected. Normal heart size. Osteopenia. IMPRESSION: Moderate hyperinflation; no active cardiopulmonary disease Osteopenia Reviewed, dictated and finalized at location B.
[2024-03-03 12:07] LABS: SARS-CoV-2 RNA PCR Negative (Negative)
[2024-03-03 12:09] LABS: Influenza A QL RT-PCR Negative (Negative); Influenza B QL RT-PCR Negative (Negative); RSV RNA, RT-PCR Negative (Negative)
== END 2024-03-03 11:16 | disposition home or self-care (01) ==
LOC: CHSLAB 11:18
PROVIDERS: PCP Internal Medicine; Visit Provider Physician Assistant
DX: R06.02 Shortness of breath (principal); J44.9 Chronic obstructive pulmonary disease, unspecified; J02.9 Acute pharyngitis, unspecified; R91.8 Other nonspecific abnormal finding of lung field; M85.88 Other specified disorders of bone density and structure, other site; Z20.822 Contact with and (suspected) exposure to COVID-19
CPT/HCPCS: 71046; 87081; 87637

== ENCOUNTER 2024-09-29 13:13 | Outpatient (CLI) | payer MEDICARE, SELFPAY ==
[2024-09-29 14:07] LABS: SARS-CoV-2 RNA PCR Negative (Negative)
[2024-09-29 14:11] LABS: Influenza A QL RT-PCR Negative (Negative); Influenza B QL RT-PCR Negative (Negative); RSV RNA, RT-PCR Negative (Negative)
== END 2024-09-29 13:14 | disposition home or self-care (01) ==
LOC: CHSLAB 13:19
PROVIDERS: PCP Internal Medicine; Visit Provider Nurse Practitioner Family
DX: R07.89 Other chest pain (principal); Z20.822 Contact with and (suspected) exposure to COVID-19
CPT/HCPCS: 87637

== ENCOUNTER 2024-10-28 10:23 | Outpatient (CLI) | payer MEDICARE, SELFPAY ==
[2024-10-28] VITALS (9 sets, daily range): PULSE 78–100; O2SAT 90–94
--- NOTE | 2024-10-28 11:46 | SIXMINWLK ---
Six Minute Walk Test PFT: Six Minute Walk Start: 10/28/24 11:15 Freq: Status: Active Protocol: RPE Activity Type Activity Date Activity User E-sign Co-sign Detail Recorded Client Recorded Date Recorded By Document 10/28/24 10:35 RES [id number] 10/28/24 11:43 RES Document 10/28/24 10:36 RES [id number] 10/28/24 11:43 RES Document 10/28/24 10:37 RES [id number] 10/28/24 11:43 RES Document 10/28/24 10:38 RES [id number] 10/28/24 11:43 RES Document 10/28/24 10:39 RES [id number] 10/28/24 11:46 RES Document 10/28/24 10:40 RES [id number] 10/28/24 11:46 RES Document 10/28/24 10:41 RES [id number] 10/28/24 11:46 RES Document 10/28/24 10:42 RES [id number] 10/28/24 11:46 RES Document 10/28/24 10:43 RES [id number] 10/28/24 11:46 RES 10/28/24 10/28/24 10/28/24 10:35 10:36 10:37 Six Minute Walk Gender F F F Age [age] Race White White White Test Phase Resting Exercise Exercise Oxygen Delivery Room Air Room Air Room Air Fraction of Inspired Oxygen (%) 21 21 21 Pulse Oximetry (90-100 %) 92 90 91 Pulse Rate (60-100 beats/min) 78 97 92 Activity Tolerance Good Good Good Rating of Perceived Dyspnea (PD) +1 Mild, +1 Mild, +1 Mild, Noticeable to Noticeable to Noticeable to the Participant the Participant the Participant but Not to an but Not to an but Not to an Observer Observer Observer Rate of Perceived Exertion (1) Very Light (2-3) Light (2-3) Light Activity Activity Activity Number of Complete Laps (1 Lap = 100 Feet) Total Distance Walked (Feet) Total Distance Walked (Meters) 10/28/24 10/28/24 10/28/24 10:38 10:39 10:40 Six Minute Walk Gender F F F Age [age] Race White White White Test Phase Exercise Exercise Exercise Oxygen Delivery Room Air Fraction of Inspired Oxygen (%) 21 21 21 Pulse Oximetry (90-100 %) 92 92 94 Pulse Rate (60-100 beats/min) 93 94 93 Activity Tolerance Good Good Good Rating of Perceived Dyspnea (PD) +1 Mild, +1 Mild, +1 Mild, Noticeable to Noticeable to Noticeable to the Participant the Participant the Participant but Not to an but Not to an but Not to an Observer Observer Observer Rate of Perceived Exertion (2-3) Light (2-3) Light (2-3) Light Activity Activity Activity Number of Complete Laps (1 Lap = 100 Feet) Total Distance Walked (Feet) Total Distance Walked (Meters) 10/28/24 10/28/24 10/28/24 10:41 10:42 10:43 Six Minute Walk Gender F F F Age [age] Race White White White Test Phase Exercise Exercise Resting Oxygen Delivery Fraction of Inspired Oxygen (%) 21 21 21 Pulse Oximetry (90-100 %) 93 93 94 Pulse Rate (60-100 beats/min) 95 100 100 Activity Tolerance Good Good Good Rating of Perceived Dyspnea (PD) +1 Mild, +1 Mild, +1 Mild, Noticeable to Noticeable to Noticeable to the Participant the Participant the Participant but Not to an but Not to an but Not to an Observer Observer Observer Rate of Perceived Exertion (2-3) Light (2-3) Light (2-3) Light Activity Activity Activity Number of Complete Laps (1 Lap = 100 8 Feet) Total Distance Walked (Feet) 800 Total Distance Walked (Meters) 243.82
--- NOTE | 2024-10-28 17:59 | P.PCNPFT_ITS ---
PFT Interpretation DOS: 10/28/2024 REQUESTING: Tomy Escamilla APRN REASON FOR TESTING: Increased shortness of breath; COPD, hx of histoplasmosis PULMONARY FUNCTION TESTS Results are reliable and reproducible. Repeatability of spirometry FEV1 maneuver pre and post bronchodilator is Grade A. Ayesha Cotton Dust equations were used to interpret these test results. Spirometry: Pre-bronchodilator FEV1 is 1.25 L, 63% predicted, decreased. Pre- bronchodilator FVC is 2.88 L, 118% predicted, normal. FEV1/FVC ratio is 43% predicted, decreased, consistent with airflow obstruction. After bronchodilator, FEV1 is 1.16 L, 58%, 7% decrease. After bronchodilator, FVC is 2.82 L, 116%, 2% decrease. The FEV1/FVC ratio remains low, 41%. Lung volumes: The total lung capacity is 5.30 L, 131% predicted, consistent with mild hyperinflation. The residual volume is 2.42 L, 155% predicted, consistent with air trapping. RV/TLC is increased, 46% consistent with air trapping. Airway resistance is increased. Diffusion: DLCO is 8.1, 43% predicted, moderately decreased. DLCO/VA is 2.47, 67% predicted, mildly decreased. Flow volume loop: Flow volume loop shows coving of the expiratory limb consistent with airflow obstruction. IMPRESSION: This study shows a moderate obstructive ventilatory impairment without response to bronchodilator, mild hyperinflation which is new, severe air trapping, and a moderate diffusion impairment which partially corrects for alveolar volume. Lack of response to bronchodilator should not preclude use if clinically indicated. Compared to a prior study on 07/28/2023, spirometry is similar, hyperinflation is similar, air trapping and diffusion impairment are stable. Edie Cook MD
--- NOTE | 2024-10-28 18:08 | WPDSIXMINUTE ---
Six Minute Walk Procedure Procedure Performed Pulmonary Stress Test (6 min walk) Six Minute Walk Six Minute Walk: DATE OF SERVICE: 10/28/2024 REQUESTING: Tomy Escamilla APRN REASON FOR TESTING: COPD, shortness of breath, history of histoplasmosis SIX MINUTE WALK This test was conducted per ATS guidelines. The initial saturation was 92% and initial heart rate was 78 beats per minute. The patient walked without stopping, completing 800 feet/ 243.8 meters. The saturation at the end of testing was 94%, and the heart rate was 100. IMPRESSION: No drop in saturation occurred during the walk study. She maintained her saturation between 93 to 94%, and she walked 800 feet/ 243.8 meters. Compared to a prior walk study 07/28/2023, she was able to walk 1250 feet/381 meters. There has been a drop in her exercise capacity from prior testing. Edie Cook MD
== END 2024-10-28 10:24 | disposition home or self-care (01) ==
LOC: CHSCARD 10:25
PROVIDERS: PCP Internal Medicine; Visit Provider Nurse Practitioner Family
DX: J44.9 Chronic obstructive pulmonary disease, unspecified (principal); R94.2 Abnormal results of pulmonary function studies
CPT/HCPCS: 94060; 94726; 94729

== ENCOUNTER 2024-11-02 11:49 | Outpatient (CLI) | payer MEDICARE, SELFPAY ==
--- NOTE | ~2024-11-02 | MM_ITS ---
EXAMINATION: MM screening [facility] BI w oscar HISTORY: Screening TECHNIQUE: Craniocaudal and mediolateral oblique 3-D tomosynthesis images were obtained and synthetic 2-D images were generated. CAD analysis was submitted and interpreted. COMPARISON: Comparison to multiple prior studies sequentially, with oldest reviewed study dated 11/08. BREAST PARENCHYMAL COMPOSITION: Not Dense: The breasts are almost entirely fatty. 1 FINDINGS: There is no evidence of suspicious mass, calcification, or architectural distortion to sugg est malignancy in either breast. There has been no suspicious interval change. IMPRESSION: 1. No mammographic evidence of malignancy. 2. Recommend routine screening mammography in one year. BI-RADS Category 1: Negative Reviewed, dictated and finalized at location A. WORKER
--- OUTSIDE RECORDS SUMMARY | 2024-11-04 18:01 | XMS_ITS | Clinical Summary ---
Author Organization [facility] Address [facility]. [place], [place] [address] [place] [address] Care Team Providers Care Hospital Television Rental Clerk Name Role Phone Mendez Vargas MD Primary Care Provider [phone] Allergies No known active allergies Medications lisinopril 40 MG tablet Take 40 mg by mouth daily. Active hydroCHLOROthia zide 25 MG tablet Take 25 mg by mouth every morning. Active atorvastatin 20 MG tablet Take 20 mg by mouth nightly at bedtime. Active omeprazole 40 MG capsule Take 40 mg by mouth daily. Active vitamin D3, cholecalciferol , 1000 UNIT Tab tablet Take 1 tablet by mouth daily. Active Pyridoxine HCl (B-6) 100 MG Tab Active Pyridoxine HCl (VITAMIN B-6) 500 MG Tab Take 2 tablets by mouth. 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 Gender Identity Not on file Sexual Orientation Not on file Last Filed Vital Signs Vital Sign Reading Time Taken Comments Blood Pressure 149/93 04/03/2021 10:28 AM CDT Pulse 70 04/03/2021 10:28 AM CDT Temperature 36.2 ??C (97.1 ??F) 04/03/2021 10:28 AM C DT Respiratory Rate 18 04/03/2021 10:28 AM CDT Oxygen Saturation 99% 04/03/2021 10:28 AM CDT Inhaled Oxygen Concentration - - Weight 68 kg (150 lb) 03/27/2021 1:24 PM CDT Height 157.5 cm (5' 2 ) 03/27/2021 1:24 PM CDT Body Mass Index 27.44 03/27/2021 1:24 PM CDT Plan of Treatment Health Maintenance Due Date Last Done Comments Pneumococcal Vaccine: 65+ Years (1 of 2 - PCV) 1966 Pneumococcal Vaccine: Pediatrics (0 to 5 Years) and At-Risk Patients (6 to 64 Years) (1 of 2 - PCV) 1965 Hepatitis C 1977 DTaP, Tdap and Td Vaccines ( 1 - Tdap) 1978 Mammogram Screening 1999 Zoster Vaccines (1 of 2) 2009 Dexa Scan (General) 01/15/2024 COVID-19 Vaccine (3 - 2023-2 5 season) 2024 11/14/2020, 10/24/2020 Influenza Adult (#1) 2024 Colorectal Cancer Screening Colonoscopy (10 Years) 04/03/2031 04/03/2021, 04/03/2021 RSV Immunization or 60+ Years (1 - 1-dose 75+ series) 2034 Meningococcal Vaccine Aged Out No kaylynn tootie eligible based on patient's age to complete this topic RSV Immunizations Under 20 Months Aged Out No longer eligible b ased on patient's age to complete this topic Procedures Procedure Name Priority Date/Time Associated Diagnosis Comments COLONOSCOPY 04/03/2021 9:54 AM CDT from Last 3 Months or Most Recently Relevant to Health Maintenance Results * COLONOSCOPY (04/03/2021 9:54 AM CDT) Alex Quinn MD GI PROCEDURE ORDERABLES Final Result from Last 3 Months or Most Recently Relevant to Health Maintenance Insurance [facility] Care Teams Hospital Television Rental Clerk Relationship Specialty Start Date End Date Mendez Vargas MD [address] [place] [address] PCP - General INTERNAL MEDICINE 03/31/21
--- OUTSIDE RECORDS SUMMARY | 2024-11-04 18:01 | XMS_ITS | CONTINUITY OF CARE DOCUMENT ---
Author Name vinicio mooney Address Unknown Organization [facility] Address [address] [place] [address] [address] [place] [address] Phone [phone] Care Team Providers Care Triage Clinician Name Role Phone Asaf OWEN, Hayley Unavailable [phone] AVINASH OWEN, HAYDEN Unavailable SHONDA OWEN, RAOUL Pruitt Unavailable INSURANCE PROVIDERS Payer name Policy type / Coverage type [place] red republican ID [id number] PPO Other [id number]
== END 2024-11-02 11:50 | disposition home or self-care (01) ==
PROVIDERS: PCP Internal Medicine; Visit Provider Internal Medicine
DX: Z12.31 Encounter for screening mammogram for malignant neoplasm of breast (principal)
CPT/HCPCS: 77063; 77067

== ENCOUNTER 2024-11-08 10:48 | Outpatient (CLI) | payer MEDICARE, SELFPAY ==
--- NOTE | ~2024-11-08 | CT_ITS ---
CT Scan of the Chest without Contrast: Clinical Indication: Lung cancer screening, nicotine dependence Technique: Contiguous sections were acquired throughout the chest without intravenous contrast. Dose reduction technique was used on this scan by utilizing automated exposure control and iterative recon struction technique. The dose-length product (DLP) was 74.95 mGy-cm. COMPARISON: 11/05/2023 Findings: There is no evidence of any significant mediastinal, hilar or axillary lymphadenopathy. Stable calcif ied lymph nodes present in the mediastinum. There are mild coronary artery calcific lesions. There is no evidence of pleural or pericardial effusion. There is a new 5 mm right upper lobe pulmonary nodule (axial image 21). Calcified left lower lobe gra nulomas are present. Images through the upper abdomen reveal stable 3.2 cm left adrenal adenoma. Impression: Lung RADS 3: Probably benign. Six-month follow-up CT recommended. Reviewed, dictated and finalized at [facility]. [employer] Impression: Lung RADS 3: Probably benign. Six-month follow-up CT recommended.
--- OUTSIDE RECORDS SUMMARY | 2024-11-08 11:54 | XMS_ITS | CONTINUITY OF CARE DOCUMENT ---
Author Name ivnicio mooney Address Unknown Organization [facility] Address [address] [place] [address] [address] [place] [address] Phone [phone] Care Team Providers Care Hotel Service Manager Name Role Phone Asaf OWEN, Hayley Unavailable [phone] AVINASH OWEN, HAYDEN Unavailable SHONDA OWEN, RAOUL Pruitt Unavailable INSURANCE PROVIDERS Payer name Policy type / Coverage type [place] red green party ID [id number] PPO Other [id number]
--- OUTSIDE RECORDS SUMMARY | 2024-11-08 11:54 | XMS_ITS | Clinical Summary ---
Author Organization [facility] Address [facility]. 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 Gender Identity Not on file Sexual Orientation [...] (1 - 1-dose 75+ series) 2034 Meningococcal B Vaccine Aged Out No l onger eligible based on patient's age to complete this topic Meningococcal Vaccine Aged Out No kaylynn tootie [...] * COLONOSCOPY (04/03/2021 9:54 AM CDT) Alex Qiunn MD GI PROCEDURE ORDERABLES Final Result from Last 3 Months or Most Recently Relevant to Health Maintenance Insurance [facility] Care Teams Men'S Locker Room Attendant Relationship Specialty Start Date End Date Mendez Vargas MD [address] [place] [address] PCP - General INTERNAL MEDICINE 03/31/21
== END 2024-11-08 10:49 | disposition home or self-care (01) ==
LOC: CHSIMG 10:49
PROVIDERS: PCP Internal Medicine; Visit Provider Nurse Practitioner Family
DX: Z12.2 Encounter for screening for malignant neoplasm of respiratory organs (principal); Z87.891 Personal history of nicotine dependence
CPT/HCPCS: 71271

== ENCOUNTER 2024-11-29 08:39 | Outpatient (CLI) | payer MEDICARE, SELFPAY ==
--- NOTE | ~2024-11-29 | DEXA_ITS ---
Bone Density Report Name: JOSE MIGUEL LR Age: 64 Sex: Female Ethnicity: White Date of : 1960 Indication: osteopenia; height loss; asthma or emphysema; hysterectomy; rheumatoid arthritis; Referring Provider: Mendez Vargas Study: Bone densitometry was performed. Exam Date: November 29, 2024 Accession number: [id number] Bone Density: Region BMD T-score Z-score Classification AP Spine(L2, L3, L4) 1.098 0.2 2.1 Normal Femoral Neck (Left) 0.556 -2.6 -1.1 Osteoporosis Total Hip (Left) 0.734 -1.7 -0.4 Osteopenia Femoral Neck (Right) 0.556 -2.6 -1.1 Osteoporosis Total Hip (Right) 0.768 -1.4 -0.2 Osteopenia Femoral Neck Mean 0.556 -2.6 -1.1 Osteoporosis Total Hip Mean 0.751 -1.6 -0.3 Osteopenia World Health Organization criteria for BMD impression classify patients as: Normal (T-score at or above -1.0), Osteopenia (T-score between -1.0 and -2.5), or Osteoporosis (T-score at or below -2.5). 10-year Fracture Risk: FRAX not reported because: Some T-score for Spine Total or Hip Total or Femoral Neck at or below -2.5 Previous Exams: Region Exam Age BMD T-score BMD Change BMD Change Date g/cm2 vs Baseline vs Previous AP Spine (L2-L4) 11/29/2024 64 1.098 0.2 0.064 (6.2%)# 0.049 (4.7%)* 04/06/2021 61 1.049 -0.3 0.015 (1.4%)# -0.072 (-6.4%) 12/15/2018 58 1.120 0.4 0.086 (8.4%)*! 0.086 (8.4%)* 11/08/2015 55 1.034 -0.4 Total Hip(Left) 11/29/2024 64 0.734 -1.7 -0.038 (-4.9%) -0.065 (-8.2%) 04/06/2021 61 0.799 -1.2 0.028 (3.6%)# 0.008 (1.0%)# 12/15/2018 58 0.791 -1.2 0.019 (2.5%) 0.019 (2.5%) 11/08/2015 55 0.772 -1.4 Total Hip(Right) 11/29/2024 64 0.768 -1.4 -0.035 (-4.3%) -0.050 (-6.1%) 04/06/2021 61 0.818 -1.0 0.015 (1.9%)# 0.015 (1.9%)# 12/15/2018 58 0.802 -1.1 *Denotes significance at 95% confidence level, LSC for AP Spine = 0.022 g/cm2, LSC for Total Hip = 0.027 g/cm2 # Denotes dissimilar scan types or analysis methods Clinical Information Provided by Patient: Smokes Has rheumatoid arthritis Has used the following medications: Vitamin D Has the following medical conditions: Asthma or Emphysema, Hysterectomy Patient maximum height was 62 Menopause Age: 39 No regular weight bearing exercise Does not regularly consume dairy products Drinks caffeinated beverages Onset of menses at age 13 Number of children 2 Impression: The patient has osteoporosis, based on the Left Femoral Neck T-score. The patient has risk factors, including: smoking. The BMD for the Total Hip(Left) decreased, changing by -8.2% since the last DXA exam. The BMD for the Total Hip(Right) decreased, changing by -6.1% since the last DXA exam. Discussion: INCREASED RISK OF FRACTURE. BONE DENSITY IS UNDESIRABLY LOW AT ONE OR MORE SKELETAL SITES, CONSISTENT WITH POSTMENOPAUSAL OSTEOPOROSIS. This patient's lowest T-score meets the World Health Organization's (WHO) criteria for osteoporosis at one or more sites (T-score -2.5 or below). In untreated patients, the risk of osteoporotic fracture increases approximately two-fold for each 1.0 SD decrease in T-score. Low bone density is not the only risk factor for fracture; also consider factors such as patient's age, frailty or poor health, risk of falling, risk of injury, previous osteoporotic fracture, family history of osteoporosis, cigarette smoking, low body weight, etc. Not everyone with low bone mineral density has osteoporosis; osteomalacia and other metabolic bone disorders should also be considered. Patients who have osteoporosis should be evaluated for specific diseases and conditions (secondary causes) that may cause or contribute to bone loss. The [place] Association of Clinical Endocrinologists (AACE) and National Osteoporosis Foundation (NOF) recommend pharmacologic intervention for all postmenopausal women whose T-score is in this range. The patient should follow a healthful lifestyle (good nutrition with adequate calcium and vitamin D, and appropriate weight-bearing exercise). Follow-Up: Consider a repeat BMD and Vertebral Fracture Assessment (VFA) exam in 2 years or sooner if medically necessary, to reassess this patient's status. Reported by: LAUREN on 11/29/2024 9:09:00 AM. Reviewed, dictated and finalized at location A.
--- OUTSIDE RECORDS SUMMARY | 2024-11-29 11:29 | XMS_ITS | Clinical Summary ---
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
== END 2024-11-29 08:40 | disposition home or self-care (01) ==
LOC: CHSIMG 08:41
PROVIDERS: PCP Internal Medicine; Visit Provider Internal Medicine
DX: Z78.0 Asymptomatic menopausal state (principal); M85.89 Other specified disorders of bone density and structure, multiple sites; M81.0 Age-related osteoporosis without current pathological fracture
CPT/HCPCS: 77080

== ENCOUNTER 2024-12-20 15:08 | Outpatient (CLI) | payer MEDICARE, SELFPAY ==
--- NOTE | ~2024-12-20 | XR_ITS ---
EXAMINATION: XR hand RT min 3V DATE: 12/20/2024 15:25 INDICATION: Right hand injury and pain. TECHNIQUE: 3 views of right hand were obtained. COMPARISON: Right hand radiographs 04/10/2018 FINDINGS: Alignment is normal. No fracture. There is mild osteoarthritis of first carpometacarpal skinny nt and most of the metacarpophalangeal joints and interphalangeal joints. There is moderate osteoarth ritis of the second and third distal interphalangeal joints and severe osteoarthritis of fifth distal interphalangeal joint. IMPRESSION: 1. Polyarticular osteoarthritis. Reviewed, dictated and finalized at location B.
--- OUTSIDE RECORDS SUMMARY | 2024-12-20 17:45 | XMS_ITS | Clinical Summary ---
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
--- OUTSIDE RECORDS SUMMARY | 2024-12-20 17:45 | XMS_ITS | CONTINUITY OF CARE DOCUMENT ---
Author Name vinicio mooney Address Unknown Organization [facility] Address [address] [place] [address] [address] [place] [address] Phone [phone] Care Team Providers Care Filing Clerk Name Role Phone Asaf OWEN, Hayley Unavailable [phone] AVINASH OWEN, HAYDEN Unavailable SHONDA OWEN, RAOUL Pruitt Unavailable INSURANCE PROVIDERS Payer name Policy type / Coverage type [place] red green party ID [employer] PPO Other [id number]
== END 2024-12-20 15:09 | disposition home or self-care (01) ==
PROVIDERS: PCP Internal Medicine; Visit Provider Nurse Practitioner Family
DX: S69.91XA Unspecified injury of right wrist, hand and finger(s), initial encounter (principal); M19.041 Primary osteoarthritis, right hand
CPT/HCPCS: 73130

== ENCOUNTER 2025-04-20 09:53 | Outpatient (CLI) | payer MEDICARE, SELFPAY ==
--- NOTE | ~2025-04-20 | CT_ITS ---
CT Scan of the Chest without Contrast: Clinical Indication: Pulmonary nodule Technique: Contiguous sections were acquired throughout the chest without intravenous contrast. Dose reduction technique was used on this scan by utilizing automated exposure control and iterative recon struction technique. The dose-length product (DLP) was 156.61 mGy-cm. COMPARISON: 11/08/2024 Findings: There is no evidence of any significant mediastinal, hilar or axillary lymphadenopathy. The mediastin al soft tissues appear normal. There is no evidence of pleural or pericardial effusion. Calcified granulomas are noted in the left lower lobe. Previously noted right upper lobe nodule is re solved. Images through the upper abdomen reveal stable low-density left adrenal adenoma.. Impression: No significant abnormalities seen. Previously noted right upper lobe nodule is resolved. Reviewed, dictated and finalized at location . Impression: No significant abnormalities seen. Previously noted right upper lobe nodule is resolved.
--- OUTSIDE RECORDS SUMMARY | 2025-04-20 10:04 | XMS_ITS | Clinical Summary ---
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 Gender Identity Not on file Sexual Orientation [...] 1:24 PM CDT Height 157.5 cm (5' 2) 03/27/2021 1:24 PM CDT Body Mass Index 27.44 03/27/2021 1:24 PM CDT Plan of Treatment Health Maintenance Due Date Last Done Comments Hepatitis C 1977 DTaP, Tdap and Td Vaccines ( 1 - Tdap) 1978 Pneumococcal Vaccine: 50+ Years (1 of 2 - PCV) 1978 Mammogram Screening 1999 Zoster Vaccines (1 of 2) 2009 Dexa Scan (General) 01/15/2024 COVID-19 Vaccine (3 - 2023-2 5 season) 2024 11/14/2020, 10/24/2020 Colorectal Cancer Screening Colonoscopy (10 Years) 04/03/2031 [...] Most Recently Relevant to Health Maintenance Insurance [facility] Care Teams Workgroup Leader Relationship Specialty Start Date End Date Mendez Vargas MD [address] [place] [address] PCP - General INTERNAL MEDICINE 03/31/21
--- OUTSIDE RECORDS SUMMARY | 2025-04-20 10:04 | XMS_ITS | Patient Health Record ---
Author Organization [facility] Address [address] [place], [place] [id number] Care Team Providers Care Shop Hand Name Role Phone LANG FITZPATRICK Unavailable [phone] Mendez Vargas Unavailable Unavailable Reason For Referral No Information Plan Of Treatment No Information Insurance Providers Payer Name Payer Address Payer Phone Subscriber Number Group Number Insured Name Patient Relationship to Insured Coverage Start Date Coverage End Date [facility] ATTN CLAIMS [address] [place] [address] [id number] JOSE MIGUEL LR Self - patient is the insured
== END 2025-04-20 09:54 | disposition home or self-care (01) ==
LOC: CHSIMG 09:56
PROVIDERS: PCP Internal Medicine; Visit Provider Nurse Practitioner Family
DX: R91.1 Solitary pulmonary nodule (principal)
CPT/HCPCS: 71250